=== PATIENT | male | born 1945 | race Caucasian/White ===

== ENCOUNTER 2018-02-27 22:47 | Emergency (ER) | payer OTHER ==
--- NOTE | 2018-02-27 23:09 | EDPHY ---
H & P Stated Complaint: R hip pain since Wednesday Time Seen by Provider: 02/27/18 22:56 HPI/ROS: CHIEF COMPLAINT: Atraumatic right hip pain HISTORY OF PRESENT ILLNESS: 72-year-old male history of right hip arthroplasty [address] Ignacio Ortiz arrives via private vehicle complaining of atraumatic right inguinal pain. 2 days ago he hiked up [place] without incident, no fall. On the descent he started to experience mild right inguinal pain which has progressed over the past 2 days. He is now unable to bear any weight. He has significant limited range of motion. No deformity or angulation. No fever or chills. No flu-like symptoms. No myalgias. No recent illness. No discoloration. No urinary or abnormality REVIEW OF SYSTEMS: A ten point review of systems was performed and is negative with the exception of the items mentioned in the HPI PAST MEDICAL & SURGICAL HISTORY: Right hip arthroplasty [address] Ignacio Ortiz. Atrial fibrillation, on daily warfarin. History of CVA. History of adenocarcinoma. History of prostate cancer. SOCIAL HISTORY: Nonsmoker. . PHYSICAL EXAM (Prior to examination, patient consented to physical exam, hands were washed and my usual and customary physical exam procedures followed) 1) GENERAL: Well-developed, well-nourished, alert and oriented. Appears nontoxic 2) HEAD: Normocephalic, atraumatic 3) HEENT: Pupils equal, round, reactive to light bilaterally. Sclera anicteric. 4) NECK: Full range of motion, no meningeal signs. 5) LUNGS: Clear auscultation bilaterally, no wheezes, no rhonchi, no retractions. 6) HEART: Regular rate and rhythm, no murmur, no heave, no gallop. 7) ABDOMEN: No guarding, no rebound, no focal tenderness, negative McBurney's, negative Raymond's, negative Rovsing's, negative peritoneal sign, 8) MUSCULOSKELETAL: Right lower extremity: Tender to palpation right inguinal region with no palpable or visible abnormality. No fluctuance. No erythema. No shortening or malrotation. Patient is unable to flex at the waist or lift his right foot off the bed secondary to pain. Distal DP PT pulses present and brisk. Normal coloration and temperature distally. Brisk capillary refill distally. 9) BACK: No obvious trauma, no visual or palpable abnormality. 10) SKIN: No rash, no petechiae. 11) Psychiatric: Patient is oriented X 3, there is no agitation. DIFFERENTIAL DIAGNOSIS: in no particular order my differential diagnosis includes but is not limited to dislocation, periprosthetic fracture, septic arthritis - Personal History Current Tetanus/Diphtheria Vaccine: Yes - Medical/Surgical History Hx Asthma: No Hx Chronic Respiratory Disease: No Hx Diabetes: No Hx Cardiac Disease: Yes Hx Renal Disease: No Hx Cirrhosis: No Hx Alcoholism: No Hx HIV/AIDS: No Hx Splenectomy or Spleen Trauma: No Other PMH: PMH: heart arrhytmia, multiple cva, on coumadin for this, prostate CA, prostatectomy, dental surgery, hernia repair, 2 adencarcinomas removed ( forehead/back), R hip replacement - Social History Smoking Status: Never smoked Constitutional: Initial Vital Signs Temperature (C) 36.4 C 02/27/18 22:49 Heart Rate 65 02/27/18 22:49 Respiratory Rate 16 02/27/18 22:49 Blood Pressure 142/95 H 02/27/18 22:49 O2 Sat (%) 96 02/27/18 22:49 O2 Delivery Mode Room Air Allergies/Adverse Reactions: No Allergies [NKDA] Allergy (Verified 08/07/15 09:36) HAYFEVER Allergy (Uncoded 12/04/11 14:47) Home Medications: Medication Instructions Recorded Acetaminophen [Acetaminophen 8 650 mg PO DAILY PRN 03/31/15 Hour] Warfarin Sodium [Coumadin] 10 mg PO SUMOWEFRSA@03/31/15 Warfarin Sodium [Coumadin] 15 mg PO TUTH@03/31/15 Acetaminophen [Tylenol 325mg (*)] 325 - 650 mg PO Q6 PRN #30 tab 08/21/15 Warfarin Sodium [Coumadin 5MG (*)] 5 mg PO DAILY16 #20 tab 08/21/15 Atorvastatin Calcium 02/27/18 Pentoxifylline 02/27/18 Hydrocodone/APAP 5/325 [[place] 1 tab PO Q6 PRN #7 tab 02/28/18 5/325 (RX)] Medical Decision Making - Diagnostics Imaging Results: Images reviewed by myself ED Course/Re-evaluation: 11:44 p.m.: Re-evaluation with serial exams. The case was discussed with secondary supervising physician Dr. Alessandro Novak in the ER. No signs of obvious fracture dislocation on x-ray. Patient is unable to bear weight, he is unable to lift his foot off the bed secondary to pain, unable to flex at the waist secondary to pain. He is afebrile. We discussed possible etiologies for symptoms including but not limited to septic arthritis, inflammatory arthritis. At this time I do not think that discharge home is appropriate nor do I think it is safe. Nonetheless will administer analgesia and re-evaluated. 12:02 a.m.: Phone consultation with Dr. Jose Conley who will convey that the patient was in the ER to Dr. Ignacio Ortiz the patient's primary orthopedic surgeon. 12:04 a.m.: Patient was given 4 mg of morphine at this time he has ambulated emergency department without assistance. He is smiling, laughing, states that he is feeling better and he would like to be discharged. He would like to attend his daughter's wedding in a few hours. Patient will be discharged with [place]. Given usual and customary opiate precautions instructions. - Data Points Laboratory Results: Laboratory Results 02/27/18 23:40 02/27/18 23:40 Medications Given: Discontinued Medications Hydrocodone Bitart/Acetaminophen ([place] 5/325mg Prepack#6) 1 btl TAKEHOME EDNOW ONE Stop: 02/28/18 00:10 Last Admin: 02/28/18 00:15 Dose: 1 btl Morphine Sulfate (Morphine) 4 mg IVP EDNOW ONE Stop: 02/27/18 23:44 Last Admin: 02/27/18 23:50 Dose: 4 mg Departure - Departure Disposition: Home, Routine, Self-Care Clinical Impression: Right hip pain Condition: Good Instructions: Hydrocodone/Acetaminophen (By mouth), Arthralgia (ED), Hip Pain ( ED) Additional Instructions: Return to the ER if you develop fevers, inability to bear weight or any other symptoms that concern you Referrals: Arminda Ortiz PA [Physician Medical Staff Specialist] - 1-2 days without fail Emmanuel Ortiz MD [Medical Doctor] - 1-2 days without fail Prescriptions: Hydrocodone/APAP 5/325 [[place] 5/325 (RX)] 1 tab PO Q6 PRN #7 tab PRN Reason: Pain, Severe
[2018-02-27 23:49] LABS: PLATELET COUNT 209 10^3/uL (150-400)
[2018-02-28 00:04] VITALS: BP 132/84
[2018-02-28] MEDS ORDERED: HYDROCOD/APAP 5/325 PREPACK#6 BTL TAKEHOME ONE (00:09)
[2018-02-28 01:35] LABS: INR 2.49 (0.83-1.16); PROTIME(PATIENT) 26.9 SEC (12.0-15.0)
== END 2018-02-28 00:20 | disposition home or self-care (01) ==
DX: M25.551 Pain in right hip (principal); Z96.641 Presence of right artificial hip joint; I48.91 Unspecified atrial fibrillation
CPT/HCPCS: 73502; 96374; 99284; J2270

== ENCOUNTER 2018-07-23 13:12 | Emergency (ER) | payer OTHER ==
[2018-07-23 13:18] VITALS: BP 126/87
--- NOTE | 2018-07-23 13:38 | EDPHY ---
H & P Stated Complaint: fall, saldaña, on coumadin Time Seen by Provider: 07/23/18 13:27 HPI/ROS: CHIEF COMPLAINT: Fall HISTORY OF PRESENT ILLNESS: The patient is a 72-year-old man who had a mechanical fall and hit the right temporal area of his head yesterday afternoon. 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 He has significant bruising to the area. No vision changes. No hearing changes. He has a mild headache controlled with Tylenol. No neck pain. No confusion. Severity: Moderate Modifying factors: None REVIEW OF SYSTEMS: Constitutional: denies: chills, fever, recent illness, recent injury EENTM: denies: blurred vision, double vision, nose congestion Respiratory: denies: cough, shortness of breath Cardiac: denies: chest pain, irregular heart rate, lightheadedness, palpitations Gastrointestinal/Abdominal: denies: abdominal pain, diarrhea, nausea, vomiting, blood streaked stools Genitourinary: denies: dysuria, frequency, hematuria, pain Musculoskeletal: denies: joint pain, muscle pain Skin: denies: lesions, rash, jaundice, bruising Neurological: See HPI denies: numbness, paresthesia, tingling, dizziness, weakness Hematologic/Lymphatic: denies: blood clots, easy bleeding, easy bruising Immunologic/allergic: denies: HIV/AIDS, transplant 10 systems reviewed and negative except as noted EXAM: GENERAL: Well-appearing, well-nourished and in no acute distress. HEAD: Atraumatic other than right eye, normocephalic. EYES: Right-sided black eye with moderate swelling. Able to open eyes without difficulty. No vision changes. No double vision. No bony tenderness. Pupils equal round and reactive to light, extraocular movements intact, sclera anicteric, conjunctiva are normal. ENT: TMs normal, nares patent, oropharynx clear without exudates. Moist mucous membranes. NECK: Nontender, no step-offs, Normal range of motion, supple without lymphadenopathy or JVD. LUNGS: Breath sounds clear to auscultation bilaterally and equal. No wheezes rales or rhonchi. HEART: Regular rate and rhythm without murmurs, rubs or gallops. ABDOMEN: Soft, nontender, normoactive bowel sounds. No guarding, no rebound. No masses appreciated. BACK: No CVA tenderness, no spinal tenderness, step-offs or deformities EXTREMITIES: Normal range of motion, no pitting or edema. No clubbing or cyanosis. NEUROLOGICAL: Cranial nerves II through XII grossly intact. Normal speech, normal gait. 5/5 strength, normal movement in all extremities, normal sensation , normal reflexes PSYCH: Normal mood, normal affect. SKIN: Warm, dry, normal turgor, no visible rashes or lesions. Source: Patient, Family Exam Limitations: No limitations - Personal History Current Tetanus/Diphtheria Vaccine: Yes - Medical/Surgical History Hx Asthma: No Hx Chronic Respiratory Disease: No Hx Diabetes: No Hx Cardiac Disease: Yes Hx Renal Disease: No Hx Cirrhosis: No Hx Alcoholism: No Hx HIV/AIDS: No Hx Splenectomy or Spleen Trauma: No Other PMH: PMH: heart arrhytmia, multiple cva from vertebral artery dissection , on coumadin, prostate CA, prostatectomy, hernia repair, 2 adencarcinomas removed (forehead/back), R hip replacement - Social History Smoking Status: Never smoked Alcohol Use: Sober Drug Use: None Constitutional: Initial Vital Signs Temperature (C) 36.8 C 07/23/18 13:16 Heart Rate 76 07/23/18 13:16 Respiratory Rate 16 07/23/18 13:16 Blood Pressure 126/87 H 07/23/18 13:16 O2 Sat (%) 94 07/23/18 13:16 O2 Delivery Mode Room Air Allergies/Adverse Reactions: No Allergies [NKDA] Allergy (Verified 08/07/15 09:36) HAYFEVER Allergy (Uncoded 12/04/11 14:47) Home Medications: Medication Instructions Recorded Acetaminophen [Acetaminophen 8 650 mg PO DAILY PRN 03/31/15 Hour] Warfarin Sodium [Coumadin] 10 mg PO SUMOWEFRSA@03/31/15 Warfarin Sodium [Coumadin] 15 mg PO TUTH@03/31/15 Acetaminophen [Tylenol 325mg (*)] 325 - 650 mg PO Q6 PRN #30 tab 08/21/15 Warfarin Sodium [Coumadin 5MG (*)] 5 mg PO DAILY16 #20 tab 08/21/15 Atorvastatin Calcium 02/27/18 Pentoxifylline 02/27/18 Hydrocodone/APAP 5/325 [[place] 1 tab PO Q6 PRN #7 tab 02/28/18 5/325 (RX)] Medical Decision Making - Diagnostics Imaging Results: Imaging Impressions Head CT 07/23/18 13:35 Impression: 1. No acute hemorrhage identified in this patient with remote posterior circulation distribution infarctions. 2. Right periorbital soft tissue swelling without underlying intraorbital or facial bone pathology. Results discussed with Dr. Joseph at 2:07 PM. General information for patients regarding this examination can be found at [email or web address]. If you have questions or comments about this report, please contact me at (hospital) or [phone] (cell). Imaging: Discussed imaging studies w/ scallop cutter Radiologist ED Course/Re-evaluation: 2:12 p.m. The patient continues to do well. We discussed his head CT. He is reassured. He is eager to go home. Differential Diagnosis: Partial list of the Differential diagnosis considered include but were not limited to; contusion, skull fracture and although unlikely based on the history and physical exam, I also considered intracranial hemorrhage, neck injury. I discussed these differential diagnoses and the plan with the patient as well as the usual and expected course. The patient understands that the diagnosis is provisional and that in medicine we are not always correct and that further workup is often warranted. Usual and customary warnings were given. All of the patient's questions were answered. The patient was instructed to return to the emergency department should the symptoms at all worsen or return, otherwise to followup with the physician as we discussed. Departure - Departure Disposition: Home, Routine, Self-Care Clinical Impression: Contusion of right eye Qualifiers: Encounter type: initial encounter Qualified Code(s): S05.11XA - Contusion of eyeball and orbital tissues, right eye, initial encounter Condition: Fair Instructions: Black Eye (ED), Contusion in Adults (ED) Referrals: Sanford Moss MD [[facility] Primary Care Provider] - 2-3 days, if not improved
== END 2018-07-23 14:15 | disposition home or self-care (01) ==
DX: S05.11XA Contusion of eyeball and orbital tissues, right eye, initial encounter (principal); I63.9 Cerebral infarction, unspecified; Z79.01 Long term (current) use of anticoagulants; W19.XXXA Unspecified fall, initial encounter